=== PATIENT | male | born 1965 | race Caucasian/White ===

== ENCOUNTER → 2019-06-16 | Emergency (ER) | payer SELFPAY ==
[~2019-06-16] VITALS: Ht 167.6 cm; Wt 75.0 kg
[~2019-06-16] MED LIST: ACETAMINOPHEN 325MG TABLET PO ONE; LORAZEPAM 1MG TABLET PO ONE
[2019-06-16 05:59] VITALS: BP 138/86
== END ==
LOC: EDSEX 05:52 → ER 05:52
DX: F10.129 Alcohol abuse with intoxication, unspecified (principal); R51 Headache; F17.200 Nicotine dependence, unspecified, uncomplicated; F14.10 Cocaine abuse, uncomplicated; F15.10 Other stimulant abuse, uncomplicated; E78.00 Pure hypercholesterolemia, unspecified; Y90.9 Presence of alcohol in blood, level not specified
CPT/HCPCS: 99283